=== PATIENT | female | born 1965 | race Caucasian/White ===

== ENCOUNTER 2017-03-08 16:10 | Emergency (ER) | payer OTHER ==
[~2017-03-08] VITALS: Ht 160 cm; Wt 68.0 kg
--- NOTE | 2017-03-08 16:16 | Emergency Room Report ---
History of Present Illness Time Seen by [id number] Presenting Problem in Triage Pt arrived:Walked Presenting Problem:PT C/O CP THAT BEGAN AROUND 1300. 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 N Clinical Suspician of Infection? N Mental Status: 1 - Regular (Normal Baseline) Sepsis Risk:Low Sepsis Risk Have you (or family members/close friends) recently traveled outside the [place]? N If Yes, where/when: Have you had exposure to infectious disease within the past month? N TB? Other? 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 She felt cold. She did not have palpitations, and denies n/v, denies diaphoresis, denies SOB, denies calf pain. Cardiac risk factors include smoking as well as mom and dad both having hx of CAD. She denies DM/HTN/hyperlipidemia/CAD. No recent travel. Given aspirin on arrival. Onset was about 3.5 hours ago. ALLERGIES Coded Allergies: Sulfa (Sulfonamide Antibiotics) (Mild, 03/08/17) codeine (Mild, 03/08/17) History Medical History General CAD? No Angina: No [place]: No Hypertension? No Hyperlipidemia? No CHF? No DVT? No PE? No COPD? No Asthma? No Anemia? No GERD? No Gastric ulcers? No GI Bleed? No Hernia? No Thyroid Problems? No Hypothyroidism? No CVA? No Seizures? No Diabetes? No Renal Insuffiency? No End Stage Renal Disease? No UTI? No Stones? No BPH? No GB Disease: No Nephritic Syndrome? No Asplenia? No Hepatitis? No Sickle Cell Disease? No Arthritis? No Migraines? No Cataracts? No Glaucoma? No MRSA? No HIV? No TB? No Anxiety? No Depression? No Cancer? No More? No Surgical Hx Previous Surgery?Y Hernia Repair Review of Systems All Other Systems Reviewed and Negative Physical Exam Vital Signs Vital Signs Date Time Temp Pulse Resp B/P Pulse O2 O2 Flow FiO2 Ox Delivery Rate 03/08 1830 88 20 136/85 99 03/08 1613 98.4 78 16 143/94 97 General Appearance normal appearance, WD/WN, no apparent distress Eye Exam - bilateral eye normal exam, bilateral eye PERRL, bilateral eye EOMI Neck normal inspection, non-tender, supple, full range of motion Respiratory Status Yes: trachea midline, chest symmetrical, non tender chest. No: respiratory distress, tender on palpation, use of accessory muscles, pain on inspiration, pain on expiration, productive cough, non productive cough. Lung Sounds bilateral: normal breath sounds, lungs clear. Cardiovascular normal exam, regular rate/rhythm, no peripheral edema, no gallop, no JVD, no murmur, no rub, normal peripheral pulses Peripheral Pulses Pulses normal Yes Gastrointestinal normal bowel sounds, normal exam, non tender, soft, no organomegaly, no pulsatile mass, no guarding, no rebound Extremities non-tender, normal range of motion, normal inspection, normal capillary refill, no calf tenderness, no pedal edema (neg Chelsey's) Strength 5 Upper Ext (L), 5 Upper Ext (R), 5 Lower Ext (L), 5 Lower Ext (R) Neurologic alert, normal exam, no motor/sensory deficits, oriented x 3 Glascow Coma Scale Glascow Coma Scale Response Value EYE response: 4 Spontaneously 4 MOTOR response: 6 OBEYS 6 VERBAL response: 5 Oriented & Converses 5 Total 15 Skin intact, normal color, warm/dry Medical Decision Making LABS/Meds/Orders Pt receiving controlled substance in ED? No Results/Orders Laboratory Tests 03/08/17 1827: Troponin I < 0.02 03/08/17 1620: Sodium 140, Potassium 3.7, Chloride 104, Carbon Dioxide 29, BUN 12, Creatinine 0.8, Estimated Creat Clear 89, Estimated GFR (MDRD) 76, Glucose 116 H, Calcium 8.9, Total Bilirubin 0.2, AST 15, ALT 12, Alkaline Phosphatase 68, Creatine Kinase 75, CK-MB (CK-2) Rel Index 0.7, CK and CKMB Interp < 0.5, Troponin I < 0.02, Total Protein 7.6, Albumin 4.0, Globulin 3.6 H, Albumin/Globulin Ratio 1.1, WBC 5.0, RBC 4.44, Hgb 14.2, Hct 40.8, MCV 91.9, RDW 12.8, Plt Count 263, MPV 6.9 L, Gran % 56.3, Gran # 2.8, Lymphocytes % 35.3, Monocytes % 5.3, Eosinophils % 2.2, Basophils % 0.9, Lymphocytes # 1.8, Monocytes # 0.3, Eosinophils # 0.1, Basophils # 0.0, PUBS MCHC 34.7, MCH 31.9 H Current Medication Orders Sig/Christine Start time Last Medication Dose Route Stop Time Status Admin Aspirin 324 MG ONCE ONE 03/08 1630 DC 03/08 PO 03/08 1631 1620 Sodium Chloride 10 ML PRN PRN 03/08 1630 AC IV 03/09 1617 Aspirin 0 .STK-MED ONE 03/08 1619 DC .ROUTE Orders Procedure Date/time Status TROPONIN I 03/08 181 Complete ELECTROCARDIOGRAM REQUEST 03/08 1617 Active CHEST(2 VIEWS-NOT PORTABLE) 03/08 161 Active IV SALINE LOCK 03/08 1617 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 of ischemic chgs, no ectopy, normal QRS, normal [place], compared w/(date of old) (NSR 77;) XRAY/CT/US XRAY/CT/US XRAY chest XR interpretation by reviewed by me Xray Results normal/NAD, no infiltrates, normal heart size, normal lung inflation santi (nl mediastinum) Departure Departure Time of Disposition 1854 Disposition DC Home or Self Care(routine) Clinical Impression Primary Impression: Atypical chest pain Condition STABLE Referrals Shekhar WEINER,A.C. (Family) Patient Instructions DI for Atypical Chest Pain Additional Instructions See Dr. Corrigan for follow up in two to five days given your family history and smoking. Recommend daily low dose aspirin. Discharge Counseling Counseled pt/family regarding diagnosis, test results, medications/RX, home care, follow up needs ED Critical Care Critical Care No at [id number]
--- NOTE | 2017-03-08 16:16 | Emergency Room Report ---
History of Present Illness Time Seen by [id number] Presenting Problem in Triage Pt arrived:Walked Presenting Problem:PT C/O CP THAT BEGAN AROUND 1300. 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 N Clinical Suspician of Infection? N Mental Status: 1 - Regular (Normal Baseline) Sepsis Risk:Low Sepsis Risk Have you (or family members/close friends) recently traveled outside the [place]? N If Yes, where/when: Have you had exposure to infectious disease within the past month? N TB? Other? 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 She felt cold. She did not have palpitations, and denies n/v, denies diaphoresis, denies SOB, denies calf pain. Cardiac risk factors include smoking as well as mom and dad both having hx of CAD. She denies DM/HTN/hyperlipidemia/CAD. No recent travel. Given aspirin on arrival. Onset was about 3.5 hours ago. ALLERGIES Coded Allergies: Sulfa (Sulfonamide Antibiotics) (Mild, 03/08/17) codeine (Mild, 03/08/17) History Medical History General CAD? No Angina: No [place]: No Hypertension? No Hyperlipidemia? No CHF? No DVT? No PE? No COPD? No Asthma? No Anemia? No GERD? No Gastric ulcers? No GI Bleed? No Hernia? No Thyroid Problems? No Hypothyroidism? No CVA? No Seizures? No Diabetes? No Renal Insuffiency? No End Stage Renal Disease? No UTI? No Stones? No BPH? No GB Disease: No Nephritic Syndrome? No Asplenia? No Hepatitis? No Sickle Cell Disease? No Arthritis? No Migraines? No Cataracts? No Glaucoma? No MRSA? No HIV? No TB? No Anxiety? No Depression? No Cancer? No More? No Surgical Hx Previous Surgery?Y Hernia Repair Review of Systems All Other Systems Reviewed and Negative Physical Exam Vital Signs Vital Signs Date Time Temp Pulse Resp B/P Pulse O2 O2 Flow FiO2 Ox Delivery Rate 03/08 1830 88 20 136/85 99 03/08 1613 98.4 78 16 143/94 97 General Appearance normal appearance, WD/WN, no apparent distress Eye Exam - bilateral eye normal exam, bilateral eye PERRL, bilateral eye EOMI Neck normal inspection, non-tender, supple, full range of motion Respiratory Status Yes: trachea midline, chest symmetrical, non tender chest. No: respiratory distress, tender on palpation, use of accessory muscles, pain on inspiration, pain on expiration, productive cough, non productive cough. Lung Sounds bilateral: normal breath sounds, lungs clear. Cardiovascular normal exam, regular rate/rhythm, no peripheral edema, no gallop, no JVD, no murmur, no rub, normal peripheral pulses Peripheral Pulses Pulses normal Yes Gastrointestinal normal bowel sounds, normal exam, non tender, soft, no organomegaly, no pulsatile mass, no guarding, no rebound Extremities non-tender, normal range of motion, normal inspection, normal capillary refill, no calf tenderness, no pedal edema (neg Chelsey's) Strength 5 Upper Ext (L), 5 Upper Ext (R), 5 Lower Ext (L), 5 Lower Ext (R) Neurologic alert, normal exam, no motor/sensory deficits, oriented x 3 Glascow Coma Scale Glascow Coma Scale Response Value EYE response: 4 Spontaneously 4 MOTOR response: 6 OBEYS 6 VERBAL response: 5 Oriented & Converses 5 Total 15 Skin intact, normal color, warm/dry Medical Decision Making LABS/Meds/Orders Pt receiving controlled substance in ED? No Results/Orders Laboratory Tests 03/08/17 1827: Troponin I < 0.02 03/08/17 1620: Sodium 140, Potassium 3.7, Chloride 104, Carbon Dioxide 29, BUN 12, Creatinine 0.8, Estimated Creat Clear 89, Estimated GFR (MDRD) 76, Glucose 116 H, Calcium 8.9, Total Bilirubin 0.2, AST 15, ALT 12, Alkaline Phosphatase 68, Creatine Kinase 75, CK-MB (CK-2) Rel Index 0.7, CK and CKMB Interp < 0.5, Troponin I < 0.02, Total Protein 7.6, Albumin 4.0, Globulin 3.6 H, Albumin/Globulin Ratio 1.1, WBC 5.0, RBC 4.44, Hgb 14.2, Hct 40.8, MCV 91.9, RDW 12.8, Plt Count 263, MPV 6.9 L, Gran % 56.3, Gran # 2.8, Lymphocytes % 35.3, Monocytes % 5.3, Eosinophils % 2.2, Basophils % 0.9, Lymphocytes # 1.8, Monocytes # 0.3, Eosinophils # 0.1, Basophils # 0.0, PUBS MCHC 34.7, MCH 31.9 H Current Medication Orders Sig/Christine Start time Last Medication Dose Route Stop Time Status Admin Aspirin 324 MG ONCE ONE 03/08 1630 DC 03/08 PO 03/08 1631 1620 Sodium Chloride 10 ML PRN PRN 03/08 1630 AC IV 03/09 1617 Aspirin 0 .STK-MED ONE 03/08 1619 DC .ROUTE Orders Procedure Date/time Status TROPONIN I 03/08 181 Complete ELECTROCARDIOGRAM REQUEST 03/08 1617 Active CHEST(2 VIEWS-NOT PORTABLE) 03/08 161 Active IV SALINE LOCK 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 of ischemic chgs, no ectopy, normal QRS, normal [place], compared w/(date of old) (NSR 77;) XRAY/CT/US XRAY/CT/US XRAY chest XR interpretation by reviewed by me Xray Results normal/NAD, no infiltrates, normal heart size, normal lung inflation asnti (nl mediastinum) Departure Departure Time of Disposition 1854 Disposition DC Home or Self Care(routine) Clinical Impression Primary Impression: Atypical chest pain Condition STABLE Referrals Shekhar WEINER,A.C. (Family) Patient Instructions DI for Atypical Chest Pain Additional Instructions See Dr. Corrigan for follow up in two to five days given your family history and smoking. Recommend daily low dose aspirin. Discharge Counseling Counseled pt/family regarding diagnosis, test results, medications/RX, home care, follow up needs ED Critical Care Critical Care No at [phone]
[2017-03-08 16:28] LABS: HEMOGLOBIN 14.2 g/dL (12.2-16.2); LYMPH # 1.8 K/mm3 (0.7-4.5); LYMPH % 35.3 % (10-50.0)
[2017-03-08 16:55] LABS: BUN 12 mg/dL (7-18)
[2017-03-08 16:56] LABS: GFR (ESTIMATED) 76 ML/MIN (59-)
[2017-03-08 19:08] VITALS: BP 136/85
--- NOTE | 2017-03-08 20:06 | RADIOLOGY REPORT PS360 ---
CHEST(2 VIEWS-NOT PORTABLE) HISTORY: Chest pain CP ORDERING PHYSICIAN: Jyoti Uriarte MD PATIENT AGE: 51 years COMPARISON: None available FINDINGS: The cardiomediastinal silhouette and pulmonary vascularity are within normal limits. The lungs are clear without infiltrates, suspicious nodules, or pleural effusions. No acute bony abnormalities. IMPRESSION: Negative chest, no acute finding
== END 2017-03-08 19:08 | disposition home or self-care (01) ==
LOC: ER 16:10
PROVIDERS: Emergency Medicine
DX: R07.89 Other chest pain (principal); Z72.0 Tobacco use